=== PATIENT | female | born 1985 | race Caucasian/White ===

== ENCOUNTER → 2019-07-20 | Emergency (ER) | payer OTHER ==
[2019-07-20] MEDS: DIPHTH/TET/ACEL PERTUSS (ADULT) 0.5 ML VIAL IM* (16:43)
[2019-07-20] MEDS: KETOROLAC 30 MG INJ IM (16:44)
== END | disposition home or self-care (01) ==
LOC: FTE 13:28
DX: S80.12XA Contusion of left lower leg, initial encounter (principal); F17.210 Nicotine dependence, cigarettes, uncomplicated; W20.8XXA Other cause of strike by thrown, projected or falling object, initial encounter; Y92.9 Unspecified place or not applicable; Z23 Encounter for immunization
CPT/HCPCS: 73590; 81025; 90471; 90715; 96372; 99284-25